=== PATIENT | female | born 1960 | race Caucasian/White ===

== ENCOUNTER 2020-12-01 11:30 | Inpatient (IN) | payer MEDICARE, OTHER ==
[~2020-12-01] VITALS: Ht 165.1 cm; Wt 61.2 kg
[2020-12-01] MEDS ORDERED: MAG HYDROX/AL HYDROX/SIMETH 30 ML UDC PO PRN (13:00)
[2020-12-01] MEDS ORDERED: MAGNESIUM HYDROXIDE 30 ML UDC PO PRN (13:00)
[2020-12-01] MEDS ORDERED: BLOOD SUGAR DIAGNOSTIC 1 EACH STRIP IN ONE (13:00)
[2020-12-01] MEDS ORDERED: LORA-259 PO (13:15)
[2020-12-01] MEDS ORDERED: ESCI10TA PO (13:15)
[2020-12-01] MEDS ORDERED: DIVA-78 PO (13:15)
[2020-12-01] MEDS ORDERED: OXYB5TAB16 PO (13:15)
[2020-12-01] MEDS ORDERED: FURO-144 PO (13:15)
[2020-12-01] MEDS ORDERED: ATOR40TA PO (13:15)
[2020-12-01] MEDS ORDERED: RISP4TAB70 PO (13:15)
[2020-12-01] MEDS ORDERED: BENZ0.5T43 PO (13:15)
[2020-12-01] MEDS ORDERED: ALBU18HF2 IH (13:15)
--- NOTE | 2020-12-01 14:32 | NUR ---
RN-ADMISSION NOTES ADMITTED 60 Y.O FEMALE PATIENT DIRECT ADMIT FROM [facility].PATIENT ON 5150 FOR DTO AND GD ADULT. UPON FACE TO FACE ASSESSMENT PATIENT IS A/O TO NAME ONLY ,UNABLE TO FOCUS ON CONVERSATIONS ALSO NOTED WITH EASILY IRRITABLE AND SCREAMS AND YELLS AT THE TAX CREDIT LEASING CONSULTANT WHEN ORIENTED IN THE UNIT AND UNIT POLICIES. STATED" I DON'T KNOW WHY THEY TAKE ME TO THIS PLACE".REDIRECTED AND ENCOURAGED PATIENT TO HAVE SHOWER AND AGREED TO SHOWER. PATIENT IS ABLE TO AMBULATE WITH STEADY GAIT. PATIENT DENIES SI/HI AT THIS TIME.CONTRABAND DONE AND FULL BODY ASSESSMENT DONE. MRSA DONE. DR. GHOSH ( PSYCHIATRIST ) MADE AWARE AND ARNOL BONNER AWARE AND WILL RECONCILE MEDICATIONS. ( TILE LAYER). FRANK LOPEZ [phone] WAS MADE AWARE OF THE ADMISSION.
[2020-12-01] MEDS ORDERED: ALBUTEROL FS 2.5 MG/3 ML VIAL.NEB NEB PRN (15:30)
[2020-12-01 16:00] VITALS: BP 124/72
[2020-12-01] MEDS: risperiDONE 1 MG TABLET PO SCH ×2 (16:33→21:23)
[2020-12-01] MEDS: OXYBUTYNIN CHLORIDE 5 MG TABLET PO SCH (16:33)
[2020-12-01] MEDS: LORAZEPAM 0.5 MG TABLET PO PRN (16:56)
--- NOTE | 2020-12-01 16:57 | NUR ---
RN-NOTES PATIENT IN THE DAY ROOM NOTED RESPONDING TO INTERNAL STIMULI SCREAMING AND YELLING.STATED" THE DEVIL IS FOLLOWING ME". REDIRECTED AND ATIVAN 0.5MG P.O GIVEN PRN ORDER. WILL CONT.MONITORING FOR SAFETY AND BEHAVIOR.
[2020-12-01] MEDS ORDERED: risperiDONE 1 MG TABLET PO SCH (17:00)
[2020-12-01] MEDS ORDERED: DIVALPROEX SODIUM 500 MG TABLET.DR PO SCH (17:00)
--- NOTE | 2020-12-01 17:45 | NUR ---
RN-NOTES PATIENT IN THE DAY ROOM EATING ,CALM,NO ACUTE DISTRESS NOTED.
--- NOTE | 2020-12-01 19:32 | NUR ---
GPS RN NOTES RECEIVED PT AWAKE AND IN BED NO S/S OR COMPLAINTS OF PAIN AT THIS TIME. PT IS DISPLAYING NO S/S OF APPARENT DISTRESS A THIS TIME.PT BREATHING IS UNLABORED WITH EQUAL RISE AND FALL OF THE CHEST. PT IS ALERT AND ORIENTED TO NAME ONLY ON ROOM AIR TOLERATING WELL. PT IS COMPLIANT WITH MEDICATION, EASILY IRRITABLE,RESPONDING TO INTERNAL STIMULI. PT HELP ASSISTED WITH TURNING AND REPOSITIONING Q2HR AND PRN FOR COMFORT AND CIRCULATION. BED SIDE RAILS UP X2 FOR SAFETY. BED LOCKED AND LOW.ALL NURSING NEEDS MET AT THIS WILL CONTINUE TO MONITOR Q15 MIN WITH THE HELP OF STAFF TO MAINTAIN SAFETY TIME.
[2020-12-01 19:48] LABS: BILIRUBIN,URINE NEGATIVE (NEGATIVE); COLOR,URINE YELLOW (YELLOW); LEUKOCYTE ESTERASE ,URINE TRACE (NEGATIVE); NITRITE, URINE NEGATIVE (NEGATIVE); PH,URINE 6.5 (5.0-8.0); PROTEIN,URINE NEGATIVE (NEGATIVE); UGLUCOSE NEGATIVE (NEGATIVE)
[2020-12-01 19:55] LABS: BACTERIA,URINE 1+ /HPF (None Seen); RBC,URINE 0-2 /HPF (0-2)
[2020-12-01 20:10] VITALS: BP 136/81
[2020-12-01] MEDS: DIVALPROEX SODIUM 500 MG TABLET.DR PO SCH (20:57)
[2020-12-01] MEDS: ATORVASTATIN 40 MG TABLET PO SCH (21:23)
[2020-12-02 07:10] LABS: ALBUMIN 3.6 g/dL (3.4-5.0); BILIRUBIN,TOTAL 0.5 mg/dL (0.2-1.0); CALCIUM, SERUM 9.5 mg/dL (8.5-10.1); CREATININE 0.7 mg/dL (0.6-1.3); POTASSIUM 4.3 mmol/L (3.5-5.1); TOTAL PROTEIN, SERUM 7.2 g/dL (6.4-8.2)
[2020-12-02 08:00] VITALS: BP 101/67
[2020-12-02 08:01] LABS: CHOLESTEROL 208 mg/dL (<200); HDL CHOLESTEROL 67 mg/dL (40-60); LDL 115 mg/dL (0-99); TRIGLYCERIDES 61 mg/dL (30-150)
[2020-12-02] MEDS: DIVALPROEX SODIUM 500 MG TABLET.DR PO SCH ×2 (08:30→21:18)
[2020-12-02] MEDS: OXYBUTYNIN CHLORIDE 5 MG TABLET PO SCH ×2 (08:30→16:20)
[2020-12-02] MEDS: risperiDONE 1 MG TABLET PO SCH ×4 (08:30→22:00)
[2020-12-02] MEDS: FUROSEMIDE 40 MG TABLET PO SCH (08:30)
[2020-12-02] MEDS: NICOTINE PATCH (14MG) 14 MG PATCH.TD24 TD SCH (08:30)
--- NOTE | 2020-12-02 09:00 | NUR ---
RN NOTE- PT PSYCHOTIC, RESPONDING TO INTERNAL STIMULUS, SCREAMING AND CRYING TALKING TO PEOPLE AROUND HER THAT AREN'T VISIBLE LABILE, POOR EYE CONTACT THOUGH CALMS W REDIRECTION AND REALITY ORIENTATION. TOOK PO RX, PO INTAKE GOOD DIRTY DISHEVELED DELUSIONS OF PERSECUTION
--- NOTE | 2020-12-02 12:00 | NUR ---
Family Contact: SW called the pts stepfatherRyan ([phone]), who stated that the pts son is involved and will contact the SW.
--- NOTE | 2020-12-02 12:05 | NUR ---
Initial Discharge Plan: Pt is currently homeless and is need of placement. SW will work with the pt and the MD regarding appropriate discharge planning. SW will form a safe and proper discharge.
[2020-12-02] MEDS: LORAZEPAM 0.5 MG TABLET PO PRN (15:32)
--- NOTE | 2020-12-02 15:32 | NUR ---
RN NOTE- PT SCREAMING AND YELLING.. ATIVAN 0.5 MG GIVEN
[2020-12-02 16:00] VITALS: BP 133/93
[2020-12-02] MEDS: CEPHALEXIN MONOHYDRATE 500 MG CAPSULE PO SCH (16:20)
--- NOTE | 2020-12-02 19:15 | NUR ---
RECEIVED PATIENT IN HER ROOM, AWAKE, SITTING ON THE BED. ON ROOM AIR. BREATHING EVEN AND UNLABORED. NO S/S OF DISTRESS. NO C/O PAIN. PATIENT DENIES SUICIDE IDEATION AT THIS TIME. ALL NEEDS ATTENDED. WILL CONTINUE TO MONITOR Q15 MINS WITH THE HELP OF STAFF TO MAINTAIN SAFETY.
[2020-12-02 20:01] VITALS: BP 114/67
[2020-12-02] MEDS: ATORVASTATIN 40 MG TABLET PO SCH (21:18)
[2020-12-03] MEDS: LORAZEPAM 0.5 MG TABLET PO PRN (03:52)
--- NOTE | 2020-12-03 04:01 | NUR ---
production boring machine operator notes: pt agitated, requested ativan at this time. gave ativan 0.5 mg q6 prn as ordered. will reassess for anxiety and continue to monitor pt.
[2020-12-03 08:00] VITALS: BP 97/67
[2020-12-03] MEDS: DIVALPROEX SODIUM 500 MG TABLET.DR PO SCH ×2 (08:13→21:07)
[2020-12-03] MEDS: CEPHALEXIN MONOHYDRATE 500 MG CAPSULE PO SCH ×2 (08:13→17:00)
[2020-12-03] MEDS: OXYBUTYNIN CHLORIDE 5 MG TABLET PO SCH ×2 (08:13→16:57)
[2020-12-03] MEDS: NICOTINE PATCH (14MG) 14 MG PATCH.TD24 TD SCH (08:13)
[2020-12-03] MEDS: risperiDONE 1 MG TABLET PO SCH ×4 (08:13→21:07)
[2020-12-03] MEDS: FUROSEMIDE 40 MG TABLET PO SCH (08:14)
[2020-12-03 16:00] VITALS: BP 96/65
--- NOTE | 2020-12-03 19:40 | NUR ---
RN NOTE RECEIVED PATIENT UP IN ROOM. A/O X 1 TO NAME. NO COMPLAINTS OF PAIN AT THIS TIME. RESPIRATIONS EVEN AND UNLABORED. NO S/SX OF DISTRESS OR AGITATION NOTED. ALL NEEDS ATTENDED TO. ASPIRATION, FALL AND SAFETY PRECAUTIONS MAINTAINED. WILL CONTINUE TO MONITOR FOR SAFETY.
[2020-12-03 20:10] VITALS: BP 107/78
[2020-12-03] MEDS: ATORVASTATIN 40 MG TABLET PO SCH (21:07)
[2020-12-03] MEDS: ACETAMINOPHEN 325 MG TABLET PO PRN (21:43)
[2020-12-03] MEDS: TEMAZEPAM 7.5 MG CAPSULE PO PRN (21:43)
--- NOTE | 2020-12-03 21:49 | NUR ---
RN NOTE C/O BLE PAIN AND INSOMNIA. ADMINISTERED TYLENOL AND RESTORIL PRN WITH PENDING EFFECT. WILL CONTINUE TO MONITOR.
[2020-12-04] MEDS: LORAZEPAM 0.5 MG TABLET PO PRN (05:21)
[2020-12-04] MEDS: ACETAMINOPHEN 325 MG TABLET PO PRN (05:21)
--- NOTE | 2020-12-04 05:25 | NUR ---
RN NOTE PATIENT WITH C/O BLE PAIN AND INCREASED ANXIETY. ADMINISTERED PRN TYLENOL AND ATIVAN WITH PENDING EFFECT. WILL CONTINUE TO MONITOR.
[2020-12-04 08:00] VITALS: BP 107/67
[2020-12-04] MEDS: OXYBUTYNIN CHLORIDE 5 MG TABLET PO SCH ×2 (09:25→17:33)
[2020-12-04] MEDS: FUROSEMIDE 40 MG TABLET PO SCH (09:25)
[2020-12-04] MEDS: CEPHALEXIN MONOHYDRATE 500 MG CAPSULE PO SCH ×2 (09:25→17:33)
[2020-12-04] MEDS: NICOTINE PATCH (14MG) 14 MG PATCH.TD24 TD SCH (09:25)
[2020-12-04] MEDS: DIVALPROEX SODIUM 500 MG TABLET.DR PO SCH ×2 (09:25→20:42)
[2020-12-04] MEDS: risperiDONE 1 MG TABLET PO SCH ×4 (09:25→21:21)
[2020-12-04 16:00] VITALS: BP 100/61
[2020-12-04 20:00] VITALS: BP 124/71
[2020-12-04] MEDS: ATORVASTATIN 40 MG TABLET PO SCH (21:21)
[2020-12-04] MEDS: TEMAZEPAM 7.5 MG CAPSULE PO PRN (22:36)
--- NOTE | 2020-12-04 22:37 | NUR ---
GPS RN NOTES: PATIENT REQUESTED FOR SLEEPING MEDICATION D/T INSOMNIA. RESTORIL 7.5MG/1CAP GIVEN PO PRN ORDERED AT 2237. WILL CONTINUE TO MONITOR AND REASSESS.
[2020-12-05] MEDS: LORAZEPAM 0.5 MG TABLET PO PRN ×2 (03:32→20:52)
[2020-12-05] MEDS: ACETAMINOPHEN 325 MG TABLET PO PRN ×2 (03:32→21:25)
--- NOTE | 2020-12-05 03:37 | NUR ---
GPS RN NOTES: PATIENT REQUESTED FOR ANXIETY AND PAIN MEDICATIONS. ATIVAN 0.5MG/1TAB GIVEN PO PRN ORDERED AT 331. TYLENOL 325MG 2TABS/650MG GIVEN PO PRN ORDERED FOR KNEE PAIN AT 331. WILL CONTINUE TO MONITOR.
--- NOTE | 2020-12-05 06:41 | NUR ---
GPS RN CLOSING NOTES: PATIENT IS LAYING ON BED SLEEPING. PATIENT SLEPT 6HRS THIS SHIFT. WEEKLY SKIN ASSESSMENT DONE, PICTURES TAKEN AND PLACED IN PATIENT CHART. PATIENT WAS MED COMPLIANT THIS SHIFT. NO S/S OF DISTRESS. RESPIRATION EVEN AND UNLABORED WITH EQUAL RISE AND FALL OF THE CHEST, ON ROOM AIR. BED IN LOWEST POSITION AND LOCKED WITH SIDE RAILS UP X2. WILL CONTINUE TO MONITOR FOR SAFETY, MOOD AND BEHAVIOR AND ENDORSE TO AM SHIFT.
[2020-12-05 08:00] VITALS: BP 109/59
[2020-12-05] MEDS: risperiDONE 1 MG TABLET PO SCH ×2 (09:09→17:40)
[2020-12-05] MEDS: OXYBUTYNIN CHLORIDE 5 MG TABLET PO SCH ×2 (09:09→17:37)
[2020-12-05] MEDS: CEPHALEXIN MONOHYDRATE 500 MG CAPSULE PO SCH ×2 (09:09→17:37)
[2020-12-05] MEDS: FUROSEMIDE 40 MG TABLET PO SCH (09:09)
[2020-12-05] MEDS: DIVALPROEX SODIUM 500 MG TABLET.DR PO SCH ×2 (09:09→20:14)
[2020-12-05] MEDS: NICOTINE PATCH (14MG) 14 MG PATCH.TD24 TD SCH (09:10)
[2020-12-05] MEDS ORDERED: OLANZAPINE 10 MG VIAL IM STA (11:12)
--- NOTE | 2020-12-05 11:28 | NUR ---
Patient agitated, ,yelling loud ,verbally abusive and assaultive behavior toward staff ,not following directions ,.Tried to calm patient down offered po Ativan 1:1 interaction with patient but unsuccessful , pt seen by with new order Zyprexa 5mg IM given IM injection given at 11:28 no physical hold , patient accept the injection voluntarily .patient refused VS x4 every 15 minutes ,no SOB ,no s/s of distress noted patient tolerated injection well ,will continue to monitor.
[2020-12-05 16:00] VITALS: BP 99/62
[2020-12-05 20:00] VITALS: BP_SYST 113; BP_SYST 164; BP_DIAS 66; BP_DIAS 97
--- NOTE | 2020-12-05 20:54 | NUR ---
GPS RN NOTES: PATIENT IS ANXIOUS, RESTLESS, REQUESTED FOR ANXIETY MEDICATIONS. ATIVAN 0.5MG/1TAB GIVEN PO PRN ORDERED AT 2051. WILL CONTINUE TO MONITOR.
[2020-12-05] MEDS: ATORVASTATIN 40 MG TABLET PO SCH (21:21)
--- NOTE | 2020-12-05 21:31 | NUR ---
GPS RN NOTES: PATIENT REQUESTED FOR PAIN MEDICATIONS DUE TO KNEE PAIN. TYLENOL 325MG 2TABS/650MG GIVEN PO PRN ORDERED AT 5. WILL CONTINUE TO MONITOR.
[2020-12-05] MEDS ORDERED: risperiDONE 1 MG TABLET PO SCH (22:00)
[2020-12-05] MEDS: TEMAZEPAM 7.5 MG CAPSULE PO PRN (22:09)
--- NOTE | 2020-12-05 22:12 | NUR ---
GPS RN NOTES: PATIENT REQUESTED FOR SLEEPING MEDICATION D/T INSOMNIA. RESTORIL 7.5MG/1CAP GIVEN PO PRN ORDERED AT 2209. WILL CONTINUE TO MONITOR.
[2020-12-06] MEDS: ACETAMINOPHEN 325 MG TABLET PO PRN ×2 (06:19→21:21)
[2020-12-06] MEDS: LORAZEPAM 0.5 MG TABLET PO PRN ×3 (06:19→20:51)
--- NOTE | 2020-12-06 06:22 | NUR ---
GPS RN NOTES: PATIENT IS ANXIOUS, RESTLESS, YELLING. ATIVAN 0.5MG/1TAB GIVEN PO PRN ORDERED AT 0619. WILL CONTINUE TO MONITOR.
--- NOTE | 2020-12-06 06:35 | NUR ---
GPS RN CLOSING NOTES: PATIENT AWAKE, RESTLESS, TALKING TO SELF. PATIENT SLEPT 8HRS THIS SHIFT. PATIENT WAS MED COMPLIANT THIS SHIFT. NO S/S OF DISTRESS. RESPIRATION EVEN AND UNLABORED WITH EQUAL RISE AND FALL OF THE CHEST, ON ROOM AIR. BED IN LOWEST POSITION AND LOCKED WITH SIDE RAILS UP X2. ALL PATIENT CARE NEEDS HAVE BEEN MET ANTICIPATED. WILL CONTINUE TO MONITOR FOR SAFETY, MOOD AND BEHAVIOR AND ENDORSE TO AM SHIFT.
[2020-12-06 08:00] VITALS: BP 92/59
[2020-12-06 08:31] VITALS: BP 117/77
[2020-12-06] MEDS: CEPHALEXIN MONOHYDRATE 500 MG CAPSULE PO SCH ×2 (08:38→16:59)
[2020-12-06] MEDS: NICOTINE PATCH (14MG) 14 MG PATCH.TD24 TD SCH (08:38)
[2020-12-06] MEDS: risperiDONE 1 MG TABLET PO SCH ×3 (08:38→21:20)
[2020-12-06] MEDS: OXYBUTYNIN CHLORIDE 5 MG TABLET PO SCH ×2 (08:39→17:02)
[2020-12-06] MEDS: DIVALPROEX SODIUM 500 MG TABLET.DR PO SCH ×2 (08:39→21:19)
[2020-12-06] MEDS: FUROSEMIDE 40 MG TABLET PO SCH (08:39)
--- NOTE | 2020-12-06 13:20 | NUR ---
given ativan for agitation.pt. states hearing voices.
--- NOTE | 2020-12-06 14:23 | NUR ---
Card Boxer Contact: SW received a call from Jess ([phone]), a legal executive assistant flotation operator, who informed the SW that the pts mother has a restraining order against the pt. SW stated that she cannot provide any information and the flotation operator stated that she understands. Loan Specialist informed the SW that the pt has an APS social worker delinquency prevention and provided the contact info for him Quincy Bolivar ([phone]).
--- NOTE | 2020-12-06 14:37 | NUR ---
APS Plant Protection Superintendent Contact: SW contacted the pts social services assistant, Quincy Bolivar ([phone]), and left a voicemail stating that the SW would like to make contact.
[2020-12-06] MEDS: BENZTROPINE MESYLATE (1 MG) 1 MG TABLET PO SCH ×2 (14:59→21:19)
--- NOTE | 2020-12-06 18:43 | NUR ---
pt. stated that she would like to speak to our social services.note left for alan.
[2020-12-06 20:00] VITALS: BP 87/50
--- NOTE | 2020-12-06 20:55 | NUR ---
GPS RN NOTES: PATIENT IS RESTLESS, ANXIOUS, TALKING TO SELF, LOUD, ATIVAN 0.5MG/1TAB GIVEN PO PRN AT 2050. WILL CONTINUE TO MONITOR.
[2020-12-06] MEDS: ATORVASTATIN 40 MG TABLET PO SCH (21:20)
[2020-12-06] MEDS: TEMAZEPAM 7.5 MG CAPSULE PO PRN (22:09)
--- NOTE | 2020-12-06 22:11 | NUR ---
GPS RN NOTES: PATIENT REQUESTED FOR SLEEPING MEDICATION D/T INSOMNIA. RESTORIL 7.5MG/1CAP GIVEN PO PRN ORDERED AT 2209. WILL CONTINUE TO MONITOR.
--- NOTE | 2020-12-07 06:33 | NUR ---
GPS RN CLOSING NOTES: PATIENT AWAKE, COMBING HER HAIR AND WASHING HER FACE IN THE BATHROOM. PATIENT SLEPT 10HRS AND WAS MED COMPLIANT THIS SHIFT. NO BEHAVIORAL ISSUES THIS SHIFT. NO S/S OF DISTRESS. RESPIRATION EVEN AND UNLABORED WITH EQUAL RISE AND FALL OF THE CHEST, ON ROOM AIR. BED IN LOWEST POSITION AND LOCKED WITH SIDE RAILS UP X2. CALL DOAN WITHIN REACH. WILL CONTINUE TO MONITOR Q15 FOR SAFETY, MOOD AND BEHAVIOR AND ENDORSE TO AM SHIFT.
--- NOTE | 2020-12-07 07:30 | NUR ---
PT RECEIVED RESTING COMFORTABLY IN BED. NO S/S OR C/O PAIN OR DISTRESS NOTED. WILL CONTINUE PLAN OF CARE.
[2020-12-07 08:00] VITALS: BP 107/57
[2020-12-07] MEDS: risperiDONE 1 MG TABLET PO SCH ×3 (08:21→21:33)
[2020-12-07] MEDS: DIVALPROEX SODIUM 500 MG TABLET.DR PO SCH ×2 (08:21→21:33)
[2020-12-07] MEDS: OXYBUTYNIN CHLORIDE 5 MG TABLET PO SCH ×2 (08:21→16:36)
[2020-12-07] MEDS: BENZTROPINE MESYLATE (1 MG) 1 MG TABLET PO SCH ×2 (08:21→21:33)
[2020-12-07] MEDS: CEPHALEXIN MONOHYDRATE 500 MG CAPSULE PO SCH ×2 (08:21→16:36)
[2020-12-07] MEDS: FUROSEMIDE 40 MG TABLET PO SCH (08:21)
[2020-12-07] MEDS: NICOTINE PATCH (14MG) 14 MG PATCH.TD24 TD SCH (08:22)
[2020-12-07] MEDS: ACETAMINOPHEN 325 MG TABLET PO PRN (13:00)
[2020-12-07] MEDS: LORAZEPAM 0.5 MG TABLET PO PRN (13:00)
[2020-12-07 16:00] VITALS: BP 103/61
--- NOTE | 2020-12-07 18:09 | NUR ---
CHANGE OF SHIFT REPORT PT RESTING COMFORTABLY IN BED. NO S/S OR C/O PAIN OR DISTRESS NOTED. PT KEPT CLEAN, AND COMFORTABLE. NO SIGNIFICANT CHANGES SINCE PREVIOUS SHIFT.
[2020-12-07 20:00] VITALS: BP 113/64
--- NOTE | 2020-12-07 21:30 | NUR ---
GPS RN NOTES DUE PO MEDS ADMINISTERED,TAKEN WELL
[2020-12-07] MEDS: ATORVASTATIN 40 MG TABLET PO SCH (21:33)
[2020-12-07] MEDS: TEMAZEPAM 7.5 MG CAPSULE PO PRN (22:09)
--- NOTE | 2020-12-07 22:09 | NUR ---
GPS RN NOTES C/O INSOMNIA,RESTORIL 7.5MG ,1 CAPSULE GIVEN ORDERED.WILL MONITOR HOURS OF SLEEP.
[2020-12-08 06:34] LABS: BASOPHILS % (AUTO) 0.4 % (0.0-2.0); EOSINOPHILS % (AUTO) 3.6 % (0.0-6.0); HEMATOCRIT 35 % (33-45); HEMOGLOBIN 11.8 g/dL (11.5-14.8); LYMPHOCYTES # (AUTO) 1.6 /CMM (0.8-4.8); LYMPHOCYTES % (AUTO) 46.7 % (20.0-44.0); MEAN CORPUSCULAR HGB CONC 34 g/dl (31.0-36.0); MEAN CORPUSCULAR VOLUME 99 fL (82-100); MONOCYTES # (AUTO) 0.4 /CMM (0.1-1.30); MONOCYTES % (AUTO) 11.8 % (2.0-12.0); NEUTROPHILS # (AUTO) 1.3 /CMM (1.8-8.9); NEUTROPHILS % (AUTO) 37.5 % (43.0-81.0); PLATELET COUNT (AUTO) 179 /CMM (150-450); RED BLOOD CELL COUNT(AUTO) 3.56 MIL/uL (4.0-5.2); WHITE BLOOD COUNT (AUTO) 3.3 K/uL (4.3-11.0)
--- NOTE | 2020-12-08 06:40 | NUR ---
GPS RN NOTES SLEPT WELL WITH RESTORIL ,MED COMPLIANT,REDIRECTABLE
[2020-12-08 07:09] LABS: ALBUMIN 2.6 g/dL (3.4-5.0); BILIRUBIN,TOTAL 0.3 mg/dL (0.2-1.0); CALCIUM, SERUM 8.9 mg/dL (8.5-10.1); CREATININE 0.7 mg/dL (0.6-1.3); POTASSIUM 3.9 mmol/L (3.5-5.1); TOTAL PROTEIN, SERUM 5.5 g/dL (6.4-8.2)
[2020-12-08 08:00] VITALS: BP 113/72
[2020-12-08] MEDS: FUROSEMIDE 40 MG TABLET PO SCH (08:48)
[2020-12-08] MEDS: CEPHALEXIN MONOHYDRATE 500 MG CAPSULE PO SCH ×2 (08:48→16:53)
[2020-12-08] MEDS: DIVALPROEX SODIUM 500 MG TABLET.DR PO SCH ×3 (08:48→21:17)
[2020-12-08] MEDS: NICOTINE PATCH (14MG) 14 MG PATCH.TD24 TD SCH (08:48)
[2020-12-08] MEDS: BENZTROPINE MESYLATE (1 MG) 1 MG TABLET PO SCH ×2 (08:48→21:13)
[2020-12-08] MEDS: OXYBUTYNIN CHLORIDE 5 MG TABLET PO SCH ×2 (08:48→16:53)
[2020-12-08] MEDS: risperiDONE 1 MG TABLET PO SCH ×3 (08:48→21:14)
--- NOTE | 2020-12-08 09:00 | NUR ---
RN NOTE- PT ALERT ORIENTED TO PERSON , CONFUSED DISORGANIZED PO INTAKE GOOD MED COMPLIANT, WANDERS ROOM AND UNIT, MUMBLING TO SELF
--- NOTE | 2020-12-08 10:58 | NUR ---
Pt. is highly agitated, screaming and yelling loud. Dr. Bai in the unit and ordered Zyprexa 5 mg IM. Addendum: 12/08/20 at 1112 by OCTAVIO FREEMAN RN Pt. almost to hit the psychiatrist
[2020-12-08] MEDS ORDERED: OLANZAPINE 10 MG VIAL IM ONE (11:00)
--- NOTE | 2020-12-08 14:36 | NUR ---
APS Treasury Manager Contact: SW spoke with the pts APS geriatric social work professor, Quincy Bolivar ([phone]), who informed the SW that the pt has been evicted from her home and that there is a restraining order that the family has against her. SW stated that she is in the process of securing a SNF placement for the pt in the [place] and the APS SW approved of the placement.
--- NOTE | 2020-12-08 14:43 | NUR ---
SNF Referral: FREDRICK faxed a referral to [facility] with attn to Jonah to the fax number: [phone].
[2020-12-08 16:00] VITALS: BP 111/73
--- NOTE | 2020-12-08 19:08 | NUR ---
RN NOTES: RECEIVED PT INSIDE THE ROOM,BY THE SINK, ALERT AND ORIENTED, SHE KNOWS HER NAME. PT IS YELLING LOUD AND TALKING TO HERSELF. ENGAGED IN CONVERSATION. PATIENT'S VOICE CALM DOWN WHEN TALKING TO HER. 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
[2020-12-08 20:00] VITALS: BP 100/66
[2020-12-08] MEDS: ATORVASTATIN 40 MG TABLET PO SCH (21:13)
[2020-12-08] MEDS: TEMAZEPAM 7.5 MG CAPSULE PO PRN (23:44)
[2020-12-09 08:00] VITALS: BP 97/59
[2020-12-09] MEDS: BENZTROPINE MESYLATE (1 MG) 1 MG TABLET PO SCH ×2 (08:09→21:50)
[2020-12-09] MEDS: NICOTINE PATCH (14MG) 14 MG PATCH.TD24 TD SCH (08:09)
[2020-12-09] MEDS: DIVALPROEX SODIUM 500 MG TABLET.DR PO SCH ×3 (08:09→21:50)
[2020-12-09] MEDS: FUROSEMIDE 40 MG TABLET PO SCH (08:09)
[2020-12-09] MEDS: OXYBUTYNIN CHLORIDE 5 MG TABLET PO SCH ×2 (08:09→16:04)
[2020-12-09] MEDS: risperiDONE 1 MG TABLET PO SCH ×4 (08:09→21:50)
[2020-12-09] MEDS: CEPHALEXIN MONOHYDRATE 500 MG CAPSULE PO SCH (08:10)
--- NOTE | 2020-12-09 08:56 | NUR ---
SNF Contact: Isaias ([phone]) from [facility] contacted the SW and stated that the pt was accepted to their facility.
--- NOTE | 2020-12-09 09:00 | NUR ---
RN NOTE- PT SCREAMING YELLING PSYCHOTIC ATTEMPTED REDIRECTION REORIENTATION. QUIET ENVIRONMENT PROVIDED. NEEDS ATTENDED
[2020-12-09 16:00] VITALS: BP 94/75
[2020-12-09 20:00] VITALS: BP 117/76
[2020-12-09 20:23] VITALS: BP 117/76
--- NOTE | 2020-12-09 20:27 | NUR ---
GPS RN NOTES PATIENT IN ROOM, RAMBLING AND TALKING TO SELF, AT TIMES YELLING. PT MED COMPLIANT. VITALS STABLE
[2020-12-09] MEDS: ATORVASTATIN 40 MG TABLET PO SCH (21:50)
[2020-12-09] MEDS: ACETAMINOPHEN 325 MG TABLET PO PRN (22:34)
[2020-12-09] MEDS: TEMAZEPAM 7.5 MG CAPSULE PO PRN (23:34)
[2020-12-10] MEDS: LORAZEPAM 0.5 MG TABLET PO PRN ×3 (07:50→20:33)
[2020-12-10] MEDS: NICOTINE PATCH (14MG) 14 MG PATCH.TD24 TD SCH (07:50)
[2020-12-10] MEDS: DIVALPROEX SODIUM 500 MG TABLET.DR PO SCH ×3 (07:51→21:05)
[2020-12-10] MEDS: FUROSEMIDE 40 MG TABLET PO SCH (07:51)
[2020-12-10] MEDS: risperiDONE 1 MG TABLET PO SCH ×4 (07:51→21:39)
[2020-12-10] MEDS: BENZTROPINE MESYLATE (1 MG) 1 MG TABLET PO SCH ×2 (07:51→21:05)
[2020-12-10] MEDS: OXYBUTYNIN CHLORIDE 5 MG TABLET PO SCH ×2 (07:54→17:10)
[2020-12-10 08:00] VITALS: BP 102/73
--- NOTE | 2020-12-10 08:12 | NUR ---
given ativan 0.5 mg for severe agitation over breakfast.
--- NOTE | 2020-12-10 15:01 | NUR ---
given ativan for agitation.
--- NOTE | 2020-12-10 15:24 | NUR ---
seems a little quieter.
[2020-12-10 16:00] VITALS: BP 95/67
--- NOTE | 2020-12-10 16:27 | NUR ---
holding risperdal bp rechecked and low now.see graphic.
[2020-12-10 16:29] VITALS: BP 97/62
[2020-12-10 16:31] VITALS: BP 93/63
[2020-12-10 19:46] VITALS: BP 137/75
--- NOTE | 2020-12-10 20:35 | NUR ---
GPS RN NOTES: PATIENT IS RESTLESS, TALKING TO SELF, YELLING INTERMITTENTLY. ATIVAN 0.5MG/1TAB GIVEN PO PRN ORDERED AT 2032. WILL CONTINUE TO MONITOR.
[2020-12-10] MEDS: ATORVASTATIN 40 MG TABLET PO SCH (21:39)
[2020-12-10] MEDS: ACETAMINOPHEN 325 MG TABLET PO PRN (21:39)
[2020-12-10] MEDS: TEMAZEPAM 7.5 MG CAPSULE PO PRN (22:59)
--- NOTE | 2020-12-10 23:04 | NUR ---
GPS RN NOTES: PATIENT REQUESTED FOR SLEEP MEDICATION RESTORIL 7.5MG/1CAP GIVEN PO PRN ORDERED AT 5809. WILL CONTINUE TO MONITOR.
--- NOTE | 2020-12-11 06:33 | NUR ---
GPS RN CLOSING NOTES: PATIENT IS CURRENTLY LAYING ON BED SLEEPING. PATIENT SLEPT 5HRS AND WAS MED COMPLIANT THIS SHIFT. NO S/S OF DISTRESS. RESPIRATION EVEN AND UNLABORED WITH EQUAL RISE AND FALL OF THE CHEST, ON ROOM AIR. BED IN LOWEST POSITION AND LOCKED WITH SIDE RAILS UP X2. CALL DOAN WITHIN REACH. ALL PATIENT CARE NEEDS HAVE BEEN MET ANTICIPATED. WILL CONTINUE TO MONITOR Q15 FOR SAFETY, MOOD AND BEHAVIOR AND ENDORSE TO AM SHIFT.
[2020-12-11 08:00] VITALS: BP 97/68
--- NOTE | 2020-12-11 08:00 | NUR ---
RN NOTE PT AGITATED. ATIVAN PO GIVEN.
--- NOTE | 2020-12-11 08:00 | NUR ---
RN CLOSING NOTE PATIENT AWAKE IN ROOM, AWAKE A/O X1. BLUNTED AFFECT, TALKING TO SELF, YELLINGS INTERMITTENTLY, DISORIENTED, DISORGANIZED, CONFUSED, LABILE. DENIES SI, DENIES PAIN. RESPIRATION EVEN AND UNLABORED WITH EQUAL RISE AND FALL OF THE CHEST, ON ROOM AIR. WILL CONTINUE TO MONITOR Q15 MIN FOR SAFETY, MOOD AND BEHAVIOR.
[2020-12-11] MEDS: FUROSEMIDE 40 MG TABLET PO SCH (08:04)
[2020-12-11] MEDS: LORAZEPAM 0.5 MG TABLET PO PRN ×2 (08:04→15:16)
[2020-12-11] MEDS: DIVALPROEX SODIUM 500 MG TABLET.DR PO SCH ×3 (08:04→21:03)
[2020-12-11] MEDS: risperiDONE 1 MG TABLET PO SCH ×4 (08:04→21:03)
[2020-12-11] MEDS: BENZTROPINE MESYLATE (1 MG) 1 MG TABLET PO SCH ×2 (08:04→21:03)
[2020-12-11] MEDS: OXYBUTYNIN CHLORIDE 5 MG TABLET PO SCH ×2 (08:05→16:02)
[2020-12-11] MEDS: NICOTINE PATCH (14MG) 14 MG PATCH.TD24 TD SCH (08:06)
--- NOTE | 2020-12-11 15:19 | NUR ---
RN NOTE PT YELLING AT SELF, "STOP TALKING TO ME" ATIVAN PO GIVEN TO PT. WILL CONTINUE TO MONITOR.
[2020-12-11 16:10] VITALS: BP 95/60
--- NOTE | 2020-12-11 18:17 | NUR ---
RN CLOSING NOTE PATIENT AWAKE IN BED, AWAKE A/O X2. BLUNTED AFFECT, APPEARS DEPRESSED,PASSIVE, LABILE. DENIES SI/HI. DENIES PAIN. REPOSITIONED PER PROTOCOL.RESPIRATION EVEN AND UNLABORED WITH EQUAL RISE AND FALL OF THE CHEST, ON ROOM AIR. ROUTINE MEDS GIVEN. REPORT TO BE GIVEN TO NIGHT NURSE FOR ZELALEM
[2020-12-11 20:00] VITALS: BP 98/56
[2020-12-11 20:40] VITALS: BP 98/56
[2020-12-11 21:00] VITALS: BP 110/62
[2020-12-11] MEDS: ATORVASTATIN 40 MG TABLET PO SCH (21:03)
[2020-12-12 08:00] VITALS: BP 109/62
[2020-12-12] MEDS: BENZTROPINE MESYLATE (1 MG) 1 MG TABLET PO SCH ×2 (08:14→20:16)
[2020-12-12] MEDS: FUROSEMIDE 40 MG TABLET PO SCH (08:14)
[2020-12-12] MEDS: DIVALPROEX SODIUM 500 MG TABLET.DR PO SCH ×3 (08:14→20:16)
[2020-12-12] MEDS: NICOTINE PATCH (14MG) 14 MG PATCH.TD24 TD SCH (08:14)
[2020-12-12] MEDS: OXYBUTYNIN CHLORIDE 5 MG TABLET PO SCH ×2 (08:14→16:10)
[2020-12-12] MEDS: risperiDONE 1 MG TABLET PO SCH ×3 (08:14→21:39)
[2020-12-12] MEDS: LORAZEPAM 0.5 MG TABLET PO PRN ×2 (08:40→21:20)
--- NOTE | 2020-12-12 08:42 | NUR ---
RN NOTE- AGITATED SCREAMING. ATIVAN 0.5 MG GIVEN
--- NOTE | 2020-12-12 09:00 | NUR ---
RN NOTE-PT YELLING SCREAMING PSYCHOTIC CRYING , RX COMPLIANT PRNS GIVEN , PO INTAKE GOOD MUMBLING TO SELF INTERNALLY PREOCCUPIED +AH + VH
[2020-12-12 16:00] VITALS: BP 97/53
[2020-12-12 20:12] VITALS: BP 106/64
[2020-12-12] MEDS: ACETAMINOPHEN 325 MG TABLET PO PRN (20:16)
[2020-12-12] MEDS: ATORVASTATIN 40 MG TABLET PO SCH (21:22)
--- NOTE | 2020-12-12 21:22 | NUR ---
GPS RN NOTES: PATIENT IS ANXIOUS, RESTLESS, TALKING LOUDLY TO SELF, YELLING INTERMITTENTLY. ATIVAN 0.5MG/1TAB GIVEN PO PRN ORDERED AT 2119. WILL CONTINUE TO MONITOR.
[2020-12-12] MEDS: TEMAZEPAM 7.5 MG CAPSULE PO PRN (22:29)
--- NOTE | 2020-12-12 22:31 | NUR ---
GPS RN NOTES: PATIENT REQUESTED FOR SLEEP MEDICATION. RESTORIL 7.5MG/1CAP GIVEN PO PRN ORDERED AT 2229. WILL CONTINUE TO MONITOR.
[2020-12-13 08:00] VITALS: BP_SYST 104; BP_SYST 93; BP_DIAS 67; BP_DIAS 68
[2020-12-13] MEDS: risperiDONE 1 MG TABLET PO SCH ×3 (08:30→21:50)
[2020-12-13] MEDS: OXYBUTYNIN CHLORIDE 5 MG TABLET PO SCH ×2 (08:30→16:04)
[2020-12-13] MEDS: DIVALPROEX SODIUM 500 MG TABLET.DR PO SCH ×3 (08:30→20:10)
[2020-12-13] MEDS: BENZTROPINE MESYLATE (1 MG) 1 MG TABLET PO SCH ×2 (08:30→20:10)
[2020-12-13] MEDS: FUROSEMIDE 40 MG TABLET PO SCH (08:30)
[2020-12-13] MEDS: NICOTINE PATCH (14MG) 14 MG PATCH.TD24 TD SCH (08:31)
--- NOTE | 2020-12-13 09:00 | NUR ---
RN NOTE- QUIETER TODAY DECREASED OUTBURSTS INTERACTIVE W STAFF PO INTAKE GOOD MED COMPLIANT + AH + VH
[2020-12-13 16:00] VITALS: BP 101/69
[2020-12-13] MEDS: LORAZEPAM 0.5 MG TABLET PO PRN (21:37)
--- NOTE | 2020-12-13 21:39 | NUR ---
GPS RN NOTES: PATIENT IS RESTLESS AND ANXIOUS. REQUESTED FOR ATIVAN. ATIVAN 0.5MG GIVEN PO PRN ORDERED AT 2136. WILL CONTINUE TO MONITOR.
[2020-12-13] MEDS: ATORVASTATIN 40 MG TABLET PO SCH (21:50)
[2020-12-13] MEDS: TEMAZEPAM 7.5 MG CAPSULE PO PRN (22:54)
--- NOTE | 2020-12-13 22:56 | NUR ---
GPS RN NOTES: PATIENT REQUESTED FOR SLEEP MEDICATION. RESTORIL 7.5MG/1CAP GIVEN PO PRN ORDERED AT 2254. WILL CONTINUE TO MONITOR.
--- NOTE | 2020-12-14 06:56 | NUR ---
GPS RN CLOSING NOTES: PATIENT IS CURRENTLY SLEEPING COMFORTABLY IN BED. SLEPT 4HRS THIS SHIFT. MED COMPLIANT THIS SHIFT. NO S/S OF DISTRESS. RESPIRATION EVEN AND UNLABORED WITH EQUAL RISE AND FALL OF THE CHEST, ON ROOM AIR. BED IN LOWEST POSITION AND LOCKED WITH SIDE RAILS UP X2. CALL DOAN WITHIN REACH. ALL PATIENT CARE NEEDS HAVE BEEN MET ANTICIPATED. WILL CONTINUE TO MONITOR FOR SAFETY, MOOD AND BEHAVIOR AND ENDORSE TO AM SHIFT.
[2020-12-14 08:00] VITALS: BP 96/56
[2020-12-14] MEDS: FUROSEMIDE 40 MG TABLET PO SCH (08:51)
[2020-12-14] MEDS: OXYBUTYNIN CHLORIDE 5 MG TABLET PO SCH ×2 (08:58→16:29)
[2020-12-14] MEDS: BENZTROPINE MESYLATE (1 MG) 1 MG TABLET PO SCH ×2 (08:58→21:32)
[2020-12-14] MEDS: risperiDONE 1 MG TABLET PO SCH ×3 (08:58→21:31)
[2020-12-14] MEDS: NICOTINE PATCH (14MG) 14 MG PATCH.TD24 TD SCH (08:58)
[2020-12-14] MEDS: DIVALPROEX SODIUM 500 MG TABLET.DR PO SCH ×3 (08:58→21:31)
--- NOTE | 2020-12-14 12:31 | NUR ---
SNF Contact: FREDRICK faxed updated notes to [facility] with attn to Victoria to the fax number: [phone].
[2020-12-14] MEDS: LORAZEPAM 0.5 MG TABLET PO PRN ×2 (12:53→21:32)
[2020-12-14 16:00] VITALS: BP 99/68
[2020-12-14 20:00] VITALS: BP 108/76
[2020-12-14] MEDS: ATORVASTATIN 40 MG TABLET PO SCH (21:31)
[2020-12-14] MEDS: ACETAMINOPHEN 325 MG TABLET PO PRN (21:31)
--- NOTE | 2020-12-15 | NUR ---
GPS RN NOTE NEW ORDER PLACED FOR COVID 19 ANTIGEN FOR D/C TO SNF IN AM. SPECIMEN COLLECTED AND SENT TO LAB. PATIENT TOLERATED WELL. WILL CONTINUE TO MONITOR.
--- NOTE | 2020-12-15 01:16 | NUR ---
GPS RN NOTE RECEIVED CALL FROM LAB WITH NEGATIVE RESULT FOR COVID-19 ANTIGEN.
[2020-12-15 08:00] VITALS: BP 119/67
[2020-12-15] MEDS: risperiDONE 1 MG TABLET PO SCH ×2 (08:43→12:25)
[2020-12-15] MEDS: BENZTROPINE MESYLATE (1 MG) 1 MG TABLET PO SCH (08:43)
[2020-12-15] MEDS: NICOTINE PATCH (14MG) 14 MG PATCH.TD24 TD SCH (08:43)
[2020-12-15] MEDS: FUROSEMIDE 40 MG TABLET PO SCH (08:43)
[2020-12-15] MEDS: OXYBUTYNIN CHLORIDE 5 MG TABLET PO SCH (08:43)
[2020-12-15] MEDS: DIVALPROEX SODIUM 500 MG TABLET.DR PO SCH ×2 (08:43→12:22)
--- NOTE | 2020-12-15 12:44 | NUR ---
Discharge Note: Pt will be discharged to [facility] located at [address] [place] [id number]; ([phone]) to [facility]. Pt will be transported via [facility] at 12PM. There is no one to notify regarding the pts discharge. Upon discharge, the pt appears to be in a dysphoric mood and presented with a congruent affect. Pt appears to be alert and oriented x3 (time, place, self). Pt denies both suicidal and homicidal ideation as well as auditory and visual hallucinations. Pt appears to be ambulatory with an unsteady gait. Pt appears to be well groomed and appropriately dressed. SW provided patient with the 2019 [facility] Senior Care Program list. SW provided patient with a copy of the [facility] homeless directory which provides information on locations for hot meals, sack lunches, food pantries, and showers. SW provided an additional list of mental health clinics: [facility] [address] [place] [address] ([phone]); [facility] [address] [place] [address] ([phone]); a list of medical clinics; [facility] [address] [facility] [address], [place]. [place], ; [facility] [address] [facility] FREDRICK Provided [facility] [address] [place] [address]: ([phone]). Patient was provided with a brief substance abuse intervention and referred to the following substance abuse programs: [facility] Substance Abuse Self-helpline ([phone]); [facility] [address] [place] [address] ([phone]); [facility] [address] [facility] [address] ([phone]); [facility] ([phone]); [facility] ([phone]); [facility] ([phone]); [facility] ([phone]). Pt will continue to be under the care of psychiatrist, Dr. Vaishali Handy, located at [address] [place] [address], [place] [address]; . Pt will be under the care of postal sorting officer, Dr. Harris, located at [address] [place] [address]; . The homeless waiver, choice of vendor form and multidisciplinary exit care form were done, printed, signed, and given to the patient.
--- NOTE | 2020-12-15 12:45 | NUR ---
RN-DISCHARGE NOTES DR. GHOSH GAVE DISCHARGE ORDER. PATIENT WAS DISCHARGE TO [facility] NURSING REPORT GIVEN TO SIENA MUNSON. PATIENT LEFT THE UNIT IN STABLE CONDITION A/O X 3. AMBULATORY WITH STEADY GAIT. DISCHARGE MEDICATIONS WAS REVIEWED WITH THE PATIENT WITH UNDERSTANDING.PATIENT DID NOT VERBALIZE SI/HI,DENIES VISUAL/AUDITORY HALLUCINATIONS AT THE TIME OF DISCHARGE. PATIENT INSTRUCTED TO CALL 911 OR GO TO THE NEAREST EMERGENCY FACILITY IN CASE OF EMERGENCY.OFFERED PNA VACCINE BUT PATIENT REFUSED. PATIENT PICKED UP VIA AMBULANCE IN A GURNEY ACCOMPANIED BY 2 EMT PERSONNEL IN STABLE CONDITION. SKIN IS INTACT. ALL BELONGINGS WAS GIVEN BACK TO THE PATIENT INCLUDING MEDICATION RECONCILIATION TO BE GIVEN TO SNF RN. MASK WAS PROVIDED.
== END 2020-12-15 12:45 | DRG 885 ==
LOC: GPS 12:22
PROVIDERS: ADMIT Psychiatry & Neurology Psychosomatic Medicine; ATTEND Nurse Practitioner Family
DX: F20.9 Schizophrenia, unspecified (principal); I50.30 Unspecified diastolic (congestive) heart failure; N39.0 Urinary tract infection, site not specified; E44.0 Moderate protein-calorie malnutrition; F29 Unspecified psychosis not due to a substance or known physiological condition; J44.9 Chronic obstructive pulmonary disease, unspecified; F32.9 Major depressive disorder, single episode, unspecified; F41.9 Anxiety disorder, unspecified; Z59.0 Homelessness; F12.90 Cannabis use, unspecified, uncomplicated; G31.84 Mild cognitive impairment of uncertain or unknown etiology; Z73.6 Limitation of activities due to disability; E78.5 Hyperlipidemia, unspecified; B96.89 Other specified bacterial agents as the cause of diseases classified elsewhere; F17.200 Nicotine dependence, unspecified, uncomplicated; N32.81 Overactive bladder; Z91.14 Patient's other noncompliance with medication regimen; Z79.899 Other long term (current) drug therapy
CPT/HCPCS: 36415; 80053-TC; 80061-TC; 80164-TC; 81001; 82962-TC; 85025-TC; 87081-TC; 87086-TC; J3490